=== PATIENT | female | born 1980 ===

== ENCOUNTER 2018-08-26 12:10 | Emergency (ER) ==
--- OUTSIDE RECORDS SUMMARY | 2018-08-26 12:12 | XMS REPORT ---
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 Allergies, Adverse Reactions, Alerts Allergy Name Allergy Type Status Severity Reaction(s) Onset Date Inactive Date Treating Clinician Comments No Known Allergies DA Active U 2018-06-05 00:00:00 Medications This patient has no known medications.
== END 2018-08-26 13:11 | disposition short-term general hospital (02) ==
LOC: ER 12:10
DX: R69 Illness, unspecified (principal)